=== PATIENT | female | born 1975 | race Caucasian/White ===

== ENCOUNTER 2016-10-12 23:17 | Observation (INO) | payer SELFPAY ==
[~2016-10-12] VITALS: Ht 182.9 cm; Wt 67.1 kg
[2016-10-12 23:20] VITALS: BP 111/80
[2016-10-12] MEDS ORDERED: NKM (23:23)
--- NOTE | 2016-10-12 23:28 | Emergency Room Report ---
History of Present Illness General Chief Complaint: Vaginal Source: Patient, PMD Present Illness HPI Is a 41-year-old female who had vaginal repair done by Dr. Solano. She presents with chief complaint of vaginal bleeding. She had a followup in the office this evening. She was actively bleeding. He had to pack the vaginal area. He sent her here to go to the OR for repair. Patient denies any other complaint. No pain. Allergies: Coded Allergies: No Known Allergies (Unverified , 10/12/16) Patient History Past Medical History: see triage record, old chart reviewed Past Surgical History: other Pertinent Family History: none Social History: Denies: smoking Last Menstrual Period: unk Now: No Immunizations: other Reviewed Nursing Documentation: PMH: Agreed, PSxH: Agreed Nursing Documentation-PMH Past Medical History: No Stated History Review of Systems Eye: Denies: blurred vision, eye pain ENT: Denies: ear pain, nose congestion, throat swelling Respiratory: Denies: cough, shortness of breath Cardiovascular: Denies: chest pain, palpitations Gastrointestinal: Denies: abdominal pain, diarrhea, nausea, vomiting Musculoskeletal: Denies: back pain, joint pain Skin: Denies: rash Neurological: Denies: headache, numbness Endocrine: Denies: increased thirst, increased urine Hematologic/Lymphatic: Denies: easy bruising All Other Systems: negative except mentioned in HPI Physical Exam Vital Signs Date Time Temp Pulse Resp B/P Pulse Ox O2 Delivery O2 Flow Rate FiO2 10/12/16 23:18 97.9 100 34 111/80 94 Room Air vitals normal Sp02 EP Interpretation: reviewed, normal General Appearance: well appearing, no apparent distress, alert Head: normocephalic, atraumatic Eyes: bilateral eye EOMI, bilateral eye PERRL ENT: hearing grossly normal, normal pharynx Neck: full range of motion, supple, no meningismus Respiratory: chest non-tender, lungs clear, normal breath sounds Cardiovascular #1: regular rate, rhythm, no murmur Gastrointestinal: normal bowel sounds, non tender, no mass, no organomegaly, no bruit, non-distended Genitourinary: other - Large amount of vaginal bleeding. Musculoskeletal: back normal, gait/station normal, normal range of motion Psychiatric: mood/affect normal Skin: warm/dry Medical Decision Making Diagnostic Impression: Primary Impression: Post-operative hemorrhage ER Course Patient with postoperative bleeding. Most likely, and arterial vessel. Currently she is stable. Blood transfusion order. OR team en route. EKG Diagnostic Results Rate: normal Rhythm: NSR ST Segments: no acute changes Rhythm Strip Diag. Results EP Interpretation: yes Rate: 91 Rhythm: NSR, no PVC's, no ectopy Last Vital Signs Date Time Temp Pulse Resp B/P Pulse Ox O2 Delivery O2 Flow Rate FiO2 10/12/16 23:18 97.9 100 34 111/80 94 Room Air Status: improved Disposition: ADMITTED INPATIENT Condition: Serious TYRESE KAPLAN M.D. October 12, 2016 23:28
[2016-10-12 23:33] LABS: BASOPHILS % (AUTO) 0.8 % (0.0-2.0); EOSINOPHILS % (AUTO) 0.9 % (0.0-3.0); LYMPHOCYTES % (AUTO) 28.7 % (20.0-45.0); MEAN CORPUSCULAR HEMOGLOBIN 29.6 PG (27.0-31.0); MEAN CORPUSCULAR HGB CONC 33.4 G/DL (32.0-36.0); MEAN CORPUSCULAR VOLUME 89 FL (80-99); MEAN PLATELET VOLUME 7.1 FL (6.5-10.1); MONOCYTES % (AUTO) 7.1 % (1.0-10.0); NEUTROPHILS % (AUTO) 62.5 % (45.0-75.0); PLATELET COUNT 247 K/UL (150-450); RED BLOOD COUNT 4.03 M/UL (4.20-5.40); RED CELL DISTRIBUTION WIDTH 11.9 % (11.6-14.8); WHITE BLOOD COUNT 12.8 K/UL (4.8-10.8)
[2016-10-12 23:39] VITALS: BP 112/68
[2016-10-12 23:51] LABS: ANION GAP 17 (5-15); CARBON DIOXIDE 24 mEQ/L (20-30); CHLORIDE 102 mEQ/L (98-107); GLOMERULAR FILTRATION RATE > 60 mL/min (>60); HEMOLYSIS 20; POTASSIUM 3.7 mEQ/L (3.4-4.9); SODIUM 143 mEQ/L (135-145)
[2016-10-12 23:53] LABS: INR 1.1 (0.9-1.1)
[2016-10-13] VITALS (10 sets, daily range): BP systolic 84–109; BP diastolic 43–68
[2016-10-13] MEDS ORDERED: LR 1000ml 1,000 ML IV SCH
[2016-10-13] MEDS ORDERED: LR 1000ml 1,000 ML IVLG SCH (00:05)
--- NOTE | 2016-10-13 00:05 | Anethesia Preoperative Eval ---
Anesthesia Pre-op PMH/ROS General Date of Evaluation: Oct 13, 2016 Anesthesiologist: Andres ASA Score: ASA 2 Mallampati Score Class I : Soft palate, uvula, fauces, pillars visible Class II: Soft palate, uvula, fauces visible Class III: Soft palate, base of uvula visible Class IV: Only hard plate visible Mallampati Classification: Class II Surgeon: Xiomara Diagnosis: Vaginal bleed Surgical Procedure: Control vaginal bleed Anesthesia History: none Family History: no anesthesia problems Allergies: Coded Allergies: No Known Allergies (Unverified , 10/12/16) Medications: see eMAR Past Medical History Cardiovascular: Denies: CAD, HTN, MD, arrhythmia, other, valve dz Pulmonary: Denies: COPD, KARL, asthma, other Gastrointestinal/Genitourinary: Denies: CRI, ESRD, GERD, other Neurologic/Psychiatric: Denies: CVA, TIA, dementia, depression/anxiety, other Endocrine: Denies: DM, hypothyroidism, other, steroids HEENT: Denies: [place] (L), [place] (R), cataract (L), cataract (R), glaucoma, other Hematology/Immune: Denies: DVT, anemia, bleeding disorder, other Musculoskeletal/Integumentary: Denies: DDD, DJD, OA, RA, edema, other PSxH Narrative: Denies Anesthesia Pre-op Phys. Exam Physician Exam Last Vital Signs Date Time Temp Pulse Resp B/P Pulse Ox O2 Delivery O2 Flow Rate FiO2 10/12/16 23:39 80 18 112/68 100 Room Air 10/12/16 23:18 97.9 Constitutional: NAD Cardiovascular: RRR Respiratory: CTA Airway Exam Mallampati Score: Class II MO: full ROM: full Teeth: intact Anesthesia Pre-op A/P Labs Hematology Test 10/12/16 23:10 White Blood Count 12.8 K/UL (4.8-10.8) H Red Blood Count 4.03 M/UL (4.20-5.40) L Hemoglobin 11.9 G/DL (12.0-16.0) L Hematocrit 35.7 % (37.0-47.0) L Mean Corpuscular Volume 89 FL (80-99) Mean Corpuscular Hemoglobin 29.6 PG (27.0-31.0) Mean Corpuscular Hemoglobin Concent 33.4 G/DL (32.0-36.0) Red Cell Distribution Width 11.9 % (11.6-14.8) Platelet Count 247 K/UL (150-450) Mean Platelet Volume 7.1 FL (6.5-10.1) Neutrophils (%) (Auto) 62.5 % (45.0-75.0) Lymphocytes (%) (Auto) 28.7 % (20.0-45.0) Monocytes (%) (Auto) 7.1 % (1.0-10.0) Eosinophils (%) (Auto) 0.9 % (0.0-3.0) Basophils (%) (Auto) 0.8 % (0.0-2.0) Coagulation Test 10/12/16 23:10 Prothrombin Time 11.0 SEC (9.30-11.50) Prothromb Time International Ratio 1.1 (0.9-1.1) Activated Partial Thromboplast Time 24 SEC (23-33) Chemistry Test 10/12/16 23:10 Sodium Level 143 mEQ/L (135-145) Potassium Level 3.7 mEQ/L (3.4-4.9) Chloride Level 102 mEQ/L (98-107) Carbon Dioxide Level 24 mEQ/L (20-30) Anion Gap 17 (5-15) H Blood Urea Nitrogen 16 mg/dL (7-23) Creatinine 1.0 mg/dL (0.5-0.9) H Estimat Glomerular Filtration Rate > 60 mL/min (>60) Glucose Level 121 mg/dL (74-106) H Calcium Level 9.0 mg/dL (8.6-10.2) Studies Pre-op Studies: EKG - nsr Risk Assessment & Plan Assessment: ASA IIE Plan: GA Status Change Before Surgery: No Pre-Antibiotics Drug: Ancef 1g Given Within 1 Hr of Incision: Yes Time Given: 00:20 RASHAD BRANDT M.D. Oct 13, 2016 00:05
[2016-10-13] MEDS ORDERED: Lidocaine 1% MPF 10mg/ml 5ml ONE (00:07)
[2016-10-13] MEDS ORDERED: fentaNYL 100 mcg/2 mL IV ONE (00:07)
--- NOTE | 2016-10-13 00:07 | Pre-Procedure Note/Attestation ---
Pre-Procedure Note/Attestation Complete Prior to Procedure Planned Procedure: not applicable Procedure Narrative: Vaginal Laceration Repair Indications for Procedure Pre-Operative Diagnosis: Vaginal Laceration Attestation I attest that I discussed the nature of the procedure; its benefits; risks and complications; and alternatives (and the risks and benefits of such alternatives ), prior to the procedure, with the patient (or the patient's legal leasing representative). I attest that, if there was a reasonable possibility of needing a blood transfusion, the patient (or the patient's legal leasing representative) was given the [facility] standardized written summary, pursuant to the [place] Blood Safety Act ([place] Health and Safety Code # 1645, as amended). I attest that I re-evaluated the patient just prior to the surgery and that there has been no change in the patient's H&P, except as documented below:NONE CHANDANA RAMOS Oct 13, 2016 00:07
[2016-10-13] MEDS ORDERED: Hydromorphone 0.5mg/0.5ml inj IVP PRN (00:15)
[2016-10-13] MEDS ORDERED: fentaNYL 100 mcg/2 mL IV PRN (00:15)
[2016-10-13] MEDS ORDERED: DiphenhydrAMINE 50mg/ml Inj IVP PRN (00:15)
[2016-10-13] MEDS ORDERED: Propofol 10mg/ml 20ml IV ONE (00:28)
--- NOTE | 2016-10-13 01:39 | Immediate Post-Op Evaluation ---
Immediate Post-Op Evalulation Immediate Post-Op Evalulation Procedure: D&C, control/repair of vaginal bleeding Date of Evaluation: Oct 13, 2016 Time of Evaluation: 01:39 IV Fluids: 800 Blood Products: 0 Estimated Blood Loss: 100 Urinary Output: 0 Blood Pressure Systolic: 93 Blood Pressure Diastolic: 43 Pulse Rate: 78 Respiratory Rate: 16 O2 Sat by Pulse Oximetry: 100 Temperature (Fahrenheit): 97.5 Pain Score (1-10): 0 Nausea: No Vomiting: No Complications 0 Patient Status: awake, reacts, patent, none Hydration Status: adequate Drug: Ancef 1g Given Within 1 Hr of Incision: Yes Time Given: 00:20 RASHAD BRANDT M.D. Oct 13, 2016 01:39
--- NOTE | 2016-10-13 01:42 | Brief Operative Note ---
Immediate Post Operative Note Operative Note Pre-op Diagnosis: Vaginal Laceration Procedure: Repair of vaginal laceration Post-op Diagnosis: Same Post-op Diagnosis: same as pre-op Surgeon: Chandana Ramos MD Harness Rigger: None Anesthesiologist: Bonny JUNG Anesthesia: general Specimen: none Complications: none Condition: stable Fluids: LR@150 ml/ hr Estimated Blood Loss: volume - 150 cc Drains: none Implant(s) used?: No CHANDANA RAMOS Oct 13, 2016 01:42
[2016-10-13] MEDS ORDERED: Norco 5mg/325mg tab ORAL PRN (01:45)
[2016-10-13] MEDS ORDERED: D5 1/2NS 1,000 ML IV SCH (01:45)
[2016-10-13 09:03] LABS: MEAN CORPUSCULAR HGB CONC 33.8 G/DL (32.0-36.0); MEAN CORPUSCULAR VOLUME 89 FL (80-99); MEAN PLATELET VOLUME 7.4 FL (6.5-10.1); PLATELET COUNT 174 K/UL (150-450); RED BLOOD COUNT 2.54 M/UL (4.20-5.40); RED CELL DISTRIBUTION WIDTH 12.3 % (11.6-14.8); WHITE BLOOD COUNT 8.3 K/UL (4.8-10.8)
[2016-10-13 09:22] LABS: BAND NEUTROPHILS % (MANUAL) 0 % (0-8); BASOPHILS % (MANUAL) 0 % (0-2); EOSINOPHILS % (MANUAL) 0 % (0-3); HYPOCHROMASIA 1+; LYMPHOCYTES % (MANUAL) 19 % (20-45); NEUTROPHILS % (MANUAL) 75 % (45-75); PLATELET ESTIMATE ADEQUATE; PLATELET MORPHOLOGY NORMAL; TOTAL CELLS COUNTED 100
[2016-10-13] MEDS ORDERED: 1/2 NS 1000ml IV ONE (11:13)
[2016-10-13] MEDS ORDERED: D5 1/2NS 1000ml IV ONE (11:13)
[2016-10-14 08:58] VITALS: BP 89/59
--- NOTE | 2016-10-14 08:58 | 48 Hour Post Anesthesia Eval ---
Post Anesthesia Evaluation Procedure: D&C, control/repair of vaginal bleeding Date of Evaluation: Oct 13, 2016 Time of Evaluation: 08:00 Blood Pressure Systolic: 89 0: 59 Pulse Rate: 89 Respiratory Rate: 20 Temperature (Fahrenheit): 98.2 O2 Sat by Pulse Oximetry: 98 Airway: patent Nausea: No Vomiting: No Pain Intensity: 0 Hydration Status: adequate Cardiopulmonary Status: at baseline Mental Status/LOC: patient returned to baseline Post-Anesthesia Complications: 0 Follow-up care needed: ready to discharge RASHAD BRANDT M.D. Oct 14, 2016 08:58
--- NOTE | 2016-10-16 01:11 | Cardiology Report ---
APPROVED REPORT EKG Measurement Heart [id number] [place] [id number] Normal sinus rhythm Normal ECG
--- NOTE | 2016-10-20 17:30 | Operative Note - Dictated ---
DATE OF OPERATION: 10/13/2016 PREOPERATIVE DIAGNOSIS: Vaginal laceration. POSTOPERATIVE DIAGNOSIS: Vaginal laceration. PROCEDURE PERFORMED: Repair of vaginal laceration. SURGEON: Calixto Solano M.D. INSURANCE FOLLOW UP REP: None. ANESTHESIOLOGIST: Elizabeth Edmondson M.D. ANESTHESIA: General. PROCEDURE IN DETAIL: After the patient was placed on operating room table and all the consents were previously signed, the patient was placed under general anesthesia. She was placed in the dorsal lithotomy position, and prepped and draped in the usual fashion for the vagina procedure. At this time, procedure continued with evacuating several blood clots from the vagina, and evaluation of the posterior vaginal wall was undertaken. There was an approximately 2 to 3 cm laceration in the posterior vaginal wall, which was profusely bleeding. At this time, a 0 Vicryl suture was utilized and the posterior vagina was approximated in the way that the laceration was completely contained. Once this procedure was completed, the patient was now fully evaluated and no additional bleeding was seen. At this time, the patient placed back in supine position and awakened from general anesthesia. She tolerated the procedure very well. Calixto Solano M.D. DR: PAULY JOB#: [id number] CC:
== END 2016-10-13 11:14 | disposition home or self-care (01) ==
LOC: EMR 23:25 → 3E 10-13 02:12
DX: N99.820 Postprocedural hemorrhage of a genitourinary system organ or structure following a genitourinary system procedure (principal); S31.41XA Laceration without foreign body of vagina and vulva, initial encounter; Y83.8 Other surgical procedures as the cause of abnormal reaction of the patient, or of later complication, without mention of misadventure at the time of the procedure; Y92.89 Other specified places as the place of occurrence of the external cause
CPT/HCPCS: 36415; 57200; 80048; 84703; 85007; 85025; 85610; 85730; 86850; 86900; 86901; 86920; 93005; 99285; G0378; J0690; J2704; J3010; 94003; 94150